=== PATIENT | female | born 2000 | race African-American/Black ===

== ENCOUNTER 2022-11-05 16:58 | Emergency (ER) | payer OTHER, SELFPAY ==
[2022-11-05 17:12] VITALS: BP 105/54; PULSE 80; RESP 20; TEMP 36.9; O2SAT 100
[2022-11-05 17:14] VITALS: BP 105/54; PULSE 80; RESP 20; TEMP 36.9; O2SAT 100
== END 2022-11-05 18:08 | disposition left against medical advice (07) ==
LOC: EXPCOLL 17:04
PROVIDERS: Emergency Provider Nurse Practitioner
DX: M54.9 Dorsalgia, unspecified (principal)
CPT/HCPCS: 99199

== ENCOUNTER 2022-11-07 14:25 | Emergency (ER) | payer OTHER, SELFPAY ==
--- NOTE | 2022-11-07 14:30 | ED.FEMALEGU ---
HPI - Female Genitourinary General Chief complaint: Urogenital-Female Stated complaint: urinary/vaginal issue Time Seen by Provider: 11/07/22 14:30 Source: patient Mode of arrival: ambulatory Limitations: no limitations History of Present Illness HPI Narrative: Patient is a 22-year-old female that presents with 3 days of urinary frequency and urgency. Patient states she just got off her menstrual cycle on the 10th. Patient states she is having intercourse with significant other this morning and started having pain with sex and a burning sensation. Patient states the burning sensation continued after intercourse and is still having an uncomfortable sensation inside of vagina. Patient would like testing for STDs but does not have high suspicion. Patient states she has been diagnosed with BV in the past. Unsure of vaginal discharge but did state there was a fishy odor. Denies any new back pain other than her chronic scoliosis pain. Denies any fever, chills, nausea, vomiting, diarrhea. MD elicited complaint: dysuria Related Data Allergies Allergy/AdvReac Type Severity Reaction Status Date / Time No Known Allergies Allergy Mild Verified 11/05/22 17:13 Review of Systems Review of Systems: All systems reviewed & are unremarkable except as noted in HPI and below Constitutional: Constitutional: Denies chills, Denies fever(s), Denies headache(s), Denies malaise and Denies weakness Eyes: Eyes: Denies change in vision, Denies eye discharge and Denies irritation ENT: Denies otalgia, Denies headache(s), Denies nasal congestion, Denies nasal discharge, Denies sinus pain and Denies sore throat Cardiovascular: Cardiovascular: Denies chest pain, Denies edema, Denies palpitations and Denies dyspnea Respiratory: Respiratory: Denies cough and Denies dyspnea Gastrointestinal: Gastrointestinal: Denies abdominal pain, Denies diarrhea, Denies nausea and Denies vomiting Genitourinary: Genitourinary: Denies hematuria, Reports nocturia, Reports dyspareunia, Reports dysuria, Denies flank pain, Reports urinary urgency, Reports vaginal odor and Reports vaginal pruritus Musculoskeletal: Musculoskeletal: Denies back pain and Denies numbness Integumentary/Breasts: Skin/Breast: Denies pruritus and Denies rash Neurologic: Denies headache(s), Denies numbness and Denies weakness Psychiatric: Psychiatric: Reports no additional psychiatric complaints Endocrine: Endocrine: Denies palpitations PMFSH Comments At time of signature, agree with nursing past medical, surgical, social and family history. There is no relevant family history pertinent to the presenting complaint. Exam Const: General: cooperative, healthy appearing, comfortable, no acute distress and well nourished Nutritional Appearance: well nourished Orientation/consciousness: patient oriented x3 HENMT: Head: normocephalic and atraumatic Ears: external ears normal Face/Nose/Sinus: Normal external nose present, Normal nares present and normal facial exam Face and sinus: normal facial exam Eyes: General: appearance normal, both eyes and all related structures Pupils: Equal, round and reactive pupils present EOM: EOMs intact bilaterally Neck: Neck: normal visual inspection, full ROM and supple Chest: Chest palpation & inspection: normal inspection of the chest Resp: Effort & Inspection: normal respiratory effort and able to speak in complete sentences Cardio: Rate: regular rate Rhythm: regular rhythm GI: Inspection: normal to inspection GI Palp: No abdominal tenderness and Yes Soft to palpation : General: Yes no CVA tenderness Back/Spine/Pelvis: Back: no CVA tenderness Skin: General skin exam: normal color and no rashes or lesions noted Neuro: General: patient oriented x3 and moves all extremities Cranial nerves: Yes Equal, round and reactive pupils present Extrem: General: normal to inspection and full ROM Psych: Appearance: grossly normal and well kempt Course
[2022-11-07 14:38] VITALS: BP 124/72; PULSE 87; RESP 14; TEMP 36.8; O2SAT 100
[2022-11-07 20:17] LABS: Trichomonas Vag PCR NOT DETECTED (NOT DETECTE)
[2022-11-07 20:39] LABS: Chlamydia trachomatis NOT DETECTED (NOT DETECTE); Neisseria gonorrhoeae PCR NOT DETECTED (NOT DETECTE)
== END 2022-11-07 15:19 | disposition home or self-care (01) ==
PROVIDERS: Emergency Provider Nurse Practitioner Family
DX: N76.0 Acute vaginitis (principal); N30.00 Acute cystitis without hematuria; M41.9 Scoliosis, unspecified
CPT/HCPCS: 81003; 87086; 87088; 87491; 87591; 87661; 99214; G0463

== ENCOUNTER 2022-12-06 15:44 | Emergency (ER) | payer OTHER, SELFPAY ==
[2022-12-06 15:54] VITALS: BP 115/58; PULSE 100; RESP 16; TEMP 36.9; O2SAT 100
--- NOTE | 2022-12-06 16:01 | ED.FEMALEGU ---
HPI - Female Genitourinary General Chief complaint: Urogenital-Female Stated complaint: Vaginal Problems Time Seen by Provider: 12/06/22 16:01 Source: patient, RN notes reviewed and old records reviewed Mode of arrival: ambulatory Limitations: no limitations History of Present Illness HPI Narrative: Patient presents for vaginal itching and discharge for a couple of days. Recently treated for BV. Was tested 1 month ago for STDs. Recently tested positive for . Last menstrual period was 30 October. 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 Related Data Home Medications Medication Instructions Recorded Confirmed No Home Medications 12/06/22 12/06/22 Allergies Allergy/AdvReac Type Severity Reaction Status Date / Time No Known Allergies Allergy Mild Verified 12/06/22 15:46 Review of Systems Review of Systems: All systems reviewed & are unremarkable except as noted in HPI and below Constitutional: Constitutional: Reports no additional constitutional complaints Eyes: Eyes: Reports no additional eye complaints ENT: Reports system reviewed and no additional complaints, except as documented Cardiovascular: Cardiovascular: Reports no additional cardiovascular complaints, Denies chest pain and Denies dyspnea Respiratory: Respiratory: Reports no additional respiratory complaints, Denies chest congestion, Denies cough and Denies dyspnea Gastrointestinal: Gastrointestinal: Reports no additional gastrointestinal complaints, Denies abdominal pain, Denies nausea and Denies vomiting Genitourinary: Genitourinary: Reports as per HPI, Reports vaginal discharge and Reports vaginal pruritus Musculoskeletal: Musculoskeletal: Reports no additional musculoskeletal complaints Integumentary/Breasts: Skin/Breast: Reports system reviewed and no additional complaints, except as docu Neurologic: Reports system reviewed and no additional complaints, except as documented Psychiatric: Psychiatric: Reports no additional psychiatric complaints Allergic/Immunologic: Allergic/Immunologic: Reports no additional allergic/immunologic complaints PMFSH Comments At the time of my signature, I reviewed and agree with the nursing past medical, surgical, social, and family history. There is no relevant family history pertinent to the patient complaint. Exam Const: General: cooperative, healthy appearing, comfortable, no acute distress, well developed, alert and well nourished Nutritional Appearance: well nourished Orientation/consciousness: patient oriented x3 Limitations: no limitations HENMT: Head: normal to inspection Ears: hearing grossly normal bilaterally and external ears normal Face/Nose/Sinus: Normal external nose present, Normal nares present, Normal nasal mucous membranes and turbinates present, normal facial exam and face symmetric Face and sinus: normal facial exam and face symmetric Mouth: Yes lip normal and Yes moist mucous membranes Eyes: General: appearance normal, both eyes and all related structures Alignment and Position: alignment normal Periorbital: periorbital findings normal Pupils: Equal, round and reactive pupils present EOM: EOMs intact bilaterally Neck: Neck: normal visual inspection, full ROM, no lymphadenopathy and no meningeal signs Chest: Chest palpation & inspection: normal inspection of the chest Resp: Effort & Inspection: normal respiratory effort and able to speak in complete sentences Cardio: Rate: regular rate Rhythm: regular rhythm GI: GI Palp: No abdominal tenderness : Other: Patient declined exam Back/Spine/Pelvis: Cervical Spine: cervical ROM normal Skin: General skin exam: normal color and no rashes or lesions noted Lesions: no lesions Rashes: no rashes Wounds: no wounds Neuro: General: patient oriented x3, gait normal, tone normal, moves all extremities and no meningeal signs Cranial nerves: Yes Equal, round and reactive pupils present Cognition (Neuro): normal cognition
== END 2022-12-06 16:20 | disposition home or self-care (01) ==
PROVIDERS: Emergency Provider Nurse Practitioner
DX: O98.819 Other maternal infectious and parasitic diseases complicating pregnancy, unspecified trimester (principal); B37.49 Other urogenital candidiasis; Z3A.00 Weeks of gestation of pregnancy not specified
CPT/HCPCS: 81003; 81025; 87086; 99212; G0463

== ENCOUNTER 2023-02-04 10:55 | Emergency (ER) | payer OTHER, SELFPAY ==
[2023-02-04 11:01] VITALS: BP 125/79; PULSE 99; RESP 16; TEMP 36.8; O2SAT 100
--- NOTE | 2023-02-04 11:15 | ED.FEMALEGU ---
HPI - Female Genitourinary General Chief complaint: Urogenital-Female Stated complaint: Vaginal Bleeding Time Seen by Provider: 02/04/23 11:17 Source: patient, RN notes reviewed and old records reviewed Mode of arrival: ambulatory Limitations: no limitations History of Present Illness HPI Narrative: 22-year-old female presents to the [facility] with complaints of vaginal bleeding. Patient states that the blood is brown, not red. Has been passing large brown clots. Was seen December 06 and had a positive test. Reports having an on 24 December. States that she was seen in a clinic. States the bleeding stopped for a couple of days return 3 days ago. This morning she has been bleeding through a pad an hour. Currently with no pain. Denies any nausea or vomiting. Reports that she has an appointment with Dr. Wild on Friday Treatment prior to arrival: none Related Data Total number of abortions (spontaneous and elective): 2 Home Medications Medication Instructions Recorded Confirmed No Home Medications 12/06/22 02/04/23 Allergies Allergy/AdvReac Type Severity Reaction Status Date / Time No Known Allergies Allergy Mild Verified 02/04/23 11:42 Review of Systems Review of Systems: All systems reviewed & are unremarkable except as noted in HPI and below Constitutional: Constitutional: Reports no additional constitutional complaints Eyes: Eyes: Reports no additional eye complaints ENT: Reports system reviewed and no additional complaints, except as documented Cardiovascular: Cardiovascular: Reports no additional cardiovascular complaints, Denies chest pain and Denies dyspnea Respiratory: Respiratory: Reports no additional respiratory complaints, Denies chest congestion, Denies cough and Denies dyspnea Gastrointestinal: Gastrointestinal: Reports as per HPI, Reports abdominal pain (Suprapubic), Denies nausea and Denies vomiting Genitourinary: Genitourinary: Reports as per HPI and Reports menorrhagia Musculoskeletal: Musculoskeletal: Reports no additional musculoskeletal complaints Integumentary/Breasts: Skin/Breast: Reports system reviewed and no additional complaints, except as docu Neurologic: Reports system reviewed and no additional complaints, except as documented Psychiatric: Psychiatric: Reports no additional psychiatric complaints Allergic/Immunologic: Allergic/Immunologic: Reports no additional allergic/immunologic complaints PMFSH Comments At the time of my signature, I reviewed and agree with the nursing past medical, surgical, social, and family history. There is no relevant family history pertinent to the patient complaint. Exam Const: General: cooperative, healthy appearing, comfortable, no acute distress, well developed, alert and well nourished Nutritional Appearance: well nourished Orientation/consciousness: patient oriented x3 Limitations: no limitations HENMT: Head: normal to inspection Ears: hearing grossly normal bilaterally and external ears normal Face/Nose/Sinus: Normal external nose present, Normal nares present, Normal nasal mucous membranes and turbinates present, normal facial exam and face symmetric Face and sinus: normal facial exam and face symmetric Eyes: General: appearance normal, both eyes and all related structures Alignment and Position: alignment normal Periorbital: periorbital findings normal Pupils: Equal, round and reactive pupils present EOM: EOMs intact bilaterally Neck: Neck: normal visual inspection, full ROM, no lymphadenopathy and no meningeal signs Chest: Chest palpation & inspection: normal inspection of the chest Resp: Effort & Inspection: normal respiratory effort and able to speak in complete sentences Auscultation: clear to auscultation bilaterally, no crackles, no rales, no rhonchi and no wheezes Cardio: Rate: regular rate Rhythm: regular rhythm GI: GI Palp: Yes abdominal tenderness (Suprapubic), Yes Soft to palpation, No Firmn
== END 2023-02-04 11:46 | disposition short-term general hospital (02) ==
PROVIDERS: Emergency Provider Nurse Practitioner
DX: N93.9 Abnormal uterine and vaginal bleeding, unspecified (principal); Z32.02 Encounter for pregnancy test, result negative; M41.9 Scoliosis, unspecified
CPT/HCPCS: 81003; 81025; 99212; G0463

== ENCOUNTER 2023-06-19 11:58 | Emergency (ER) | payer OTHER, SELFPAY ==
[2023-06-19 12:11] VITALS: BP 114/75; PULSE 79; RESP 14; TEMP 36.7; O2SAT 100
--- NOTE | 2023-06-19 12:20 | ED.FEMALEGU ---
HPI - Female Genitourinary General Chief complaint: Urogenital-Female Stated complaint: urinary issue Time Seen by Provider: 06/19/23 13:02 Source: patient and RN notes reviewed Mode of arrival: ambulatory Limitations: no limitations History of Present Illness HPI Narrative: 22-year-old female presents concern for dysuria, frequency, urgency, pain during sex. She denies fever, body aches, chills, sweats, abdominal pain, nausea, vomiting. She reports history of STI. She reports she has been having unprotected sex with a partner, however she does not know of any specific exposure. She denies abnormal vaginal discharge. She reports a small bump on her labia that she occasionally squeezes and gets pus out of, reports it has gotten very small. It has been there about a week. MD elicited complaint: dysuria Related Data Home Medications Medication Instructions Recorded Confirmed medroxyprogesterone 150 mg/mL 150 mg IM [id number] 06/19/23 06/19/23 intramuscular suspension Allergies Allergy/AdvReac Type Severity Reaction Status Date / Time No Known Allergies Allergy Mild Verified 06/19/23 12:09 Review of Systems Review of Systems: CONSTITUTIONAL: Denies malaise, chills, sweats, or fever. CARDIOVASCULAR: Denies chest pain, palpitations, or edema. RESPIRATORY: Denies cough or dyspnea. GASTROINTESTINAL: Denies abdominal pain, nausea, vomiting, diarrhea GENITOURINARY: Reports dysuria, frequency, urgency. Denies flank pain or hematuria. SKIN: Denies rash or itching. Reports a small bump on her labia MUSCULOSKELETAL: Denies back pain or myalgia. All systems reviewed & are unremarkable except as noted in HPI and below PMFSH Comments At time of signature, agree with nursing past medical, surgical, social and family history. There is no relevant family history pertinent to the presenting complaint Exam Narrative: GENERAL: Well-appearing, well-nourished, and in no acute distress. HEAD: Normocephalic. EYES: PERRLA, conjunctivae clear. NECK: Supple. No lymphadenopathy CHEST: Clear to auscultation. No respiratory distress. HEART: Regular rate and rhythm. ABDOMEN: Soft, nontender upon palpation, nondistended, normal active bowel sounds, no palpable or pulsatile masses, no guarding. No CVA tenderness SKIN: Warm, dry, no rash. NEURO: Alert and oriented x3. PSYCH: Normal mood and affect Patient refused pelvic exam Course Course Emergency Course: I discussed with patient that due to her symptoms, concern for STI I will not treat her until I have more information with her STI test results and urine culture. Patient refused pelvic exam so I could examine the bump on her labia, likely sounds like it may be an ingrown hair, patient was given anticipatory a device regarding caring for that. She was also advised to follow up with a clinic for further STI testing. Patient is aware of diagnosis, understands and agrees to treatment plan. Anticipatory guidance given. Patient agrees to follow-up as directed and is aware of reasons to seek care at the emergency department. Portions of this record may have been created with voice recognition software Level of Care: Express Care Visit Vital Signs Vital signs: Vital Signs Temperature 98.0 F 06/19/23 12:11 Pulse Rate 79 06/19/23 12:11 Respiratory Rate 14 06/19/23 12:11 Blood Pressure 114/75 06/19/23 12:11 Pulse Oximetry 100 06/19/23 12:11 Temperature 98.0 F 06/19/23 12:11 Pulse Rate 79 06/19/23 12:11 Respiratory Rate 14 06/19/23 12:11 Blood Pressure 114/75 06/19/23 12:11 Pulse Oximetry 100 06/19/23 12:11 Reviewed. MDM - Female Genitourinary MDM Narrative Medical decision making narrative: Exam findings and UA show no acute concerns or changes; patient is non-toxic appearing and is in no distress. Patient is appropriate for outpatient treatment and follow-up. Differential Diagnosis Differential diagnosis: Likely urinary tract inf
[2023-06-19 21:44] LABS: Trichomonas Vag PCR NOT DETECTED (NOT DETECTE)
[2023-06-19 22:08] LABS: Chlamydia trachomatis NOT DETECTED (NOT DETECTE); Neisseria gonorrhoeae PCR NOT DETECTED (NOT DETECTE)
== END 2023-06-19 13:21 | disposition home or self-care (01) ==
PROVIDERS: Emergency Provider Nurse Practitioner; PCP Nurse Practitioner Family
DX: R30.0 Dysuria (principal)
CPT/HCPCS: 81003; 87086; 87491; 87591; 87661; 99214; G0463

== ENCOUNTER 2024-02-11 14:42 | Emergency (ER) | payer OTHER, SELFPAY ==
--- NOTE | 2024-02-11 15:04 | ED_ITS ---
HPI - Female Genitourinary General Chief complaint: Urogenital-Female Stated complaint: urinary issue,abdominal pain Time Seen by Provider: 02/11/24 15:04 Source: patient Mode of arrival: ambulatory Limitations: no limitations History of Present Illness HPI Narrative: 23 yo F presents with c/o lower ABD cramping, urinary frequency, urgency and also vaginal discharge. Requesting STI testing. Afebrile. All systems reviewed and negative except as noted above. Related Data Home Medications ?Medication ?Instructions ?Recorded ?Confirmed ?Last Taken ?Type medroxyprogesterone 150 mg/mL 150 mg IM [id number] 06/19/23 06/19/23 Unknown History intramuscular suspension Allergies Allergy/AdvReac Type Severity Reaction Status Date / Time No Known Allergies Allergy Mild Verified 02/11/24 14:55 Review of Systems Review of Systems: CONSTITUTIONAL: Denies fever, chills, or sweats. EYES: Denies visual changes, redness, or discharge. ENT: Denies rhinorrhea, congestion, sore throat, or otalgia. CARDIOVASCULAR: Denies chest pain, palpitations, or edema. RESPIRATORY: Denies cough or dyspnea. GASTROINTESTINAL: Denies abdominal pain, nausea, vomiting, or diarrhea. GENITOURINARY: Reports dysuria frequency, vaginal discharge. Denies hematuria. SKIN: Denies rash or itching. MUSCULOSKELETAL: Denies back pain, joint pain, or myalgia. NEUROLOGIC: Denies headache, numbness, or weakness. PSYCHIATRIC: Denies anxiety or depression. All other systems reviewed are negative, except as documented in HPI. PMFSH Comments At time of signature, agree with nursing past medical, surgical, social and family history. There is no relevant family history pertinent to the presenting complaint. Exam Narrative: GENERAL: This is a well-nourished, well-developed patient, in no apparent distress. HEAD: normocephalic, atraumatic. EYES: PERRL. Sclera clear/white. Vision is grossly intact. EARS: External ears normal NOSE: External nose normal NECK: Neck supple, non-tender without lymphadenopathy, masses or thyromegaly. CARDIOVASCULAR: Regular rate and rhythm without murmurs, gallops, or rubs. RESPIRATORY: Clear to auscultation. Breath sounds equal bilaterally. No wheezes, rales, or rhonchi. SKIN: warm, Dry, intact with no suspicious lesions or rash, good texture and turgor. NEURO: awake, alert, and oriented to person, place and time. There were no obvious focal neurologic abnormalities. EXTREMITIES: No joint tenderness, effusion, or edema noted. genitourinary: pelvic exam deferred Course Course Level of Care: Express Care Visit Vital Signs Vital signs: Vital Signs Temperature 36.1 C L 02/11/24 15:08 Pulse Rate 89 02/11/24 15:08 Respiratory Rate 16 02/11/24 15:08 Blood Pressure 127/86 02/11/24 15:08 Pulse Oximetry 99 02/11/24 15:08 Oxygen Delivery Room Air 02/11/24 15:08 Temperature 36.1 C L 02/11/24 15:08 Pulse Rate 89 02/11/24 15:08 Respiratory Rate 16 02/11/24 15:08 Blood Pressure 127/86 02/11/24 15:08 Pulse Oximetry 99 02/11/24 15:08 Oxygen Delivery Room Air 02/11/24 15:08 reviewed MDM - Female Genitourinary MDM Narrative Medical decision making narrative: Patient is aware of diagnosis, understands and agrees to treatment plan. Anticipatory guidance given. Patient agrees to follow-up as directed and is aware of reasons to seek care at the emergency department. Portions of this record may have been created with voice recognition software urinalysis normal. Urine culture ordered. Urine test for gonorrhea, chlamydia, Trichomonas Pending. Bacterial vaginosis and yeast infection treatment pending. Will treat for gonorrhea and chlamydia today due to patient's symptoms. Lab Data Labs: Lab Results 02/11/24 02/11/24 Range/Units 15:07 15:08 POC Urine Color Yellow POC Urine Clarity Clear POC Urine pH 7.0 POC Ur Specif [place] 1.025 POC Urine Protein Trace (Negative) POC Ur Glucose (UA) Negative (Negative) POC Urine Ketones Negative (Negative) POC Urine Blood Negative (Negative) POC Urine Nitrite Negative (Negative) POC Urine Bilirubin Negative (Negative) POC Urine Urobilinogen 1.0 POC U Leukocyte Esteras Negative (Negative) Bact Vaginosis Panel Pending Discharge Plan Discharge Clinical Impression: Dysuria, Vaginal discharge Patient Disposition: Home, Self-Care Condition: Stable Instructions: Antibiotic Form, Sexually Transmitted Diseases (ED), Safe Sex Practices (ED) Additional Instructions: You were tested for gonorrhea, chlamydia, Trichomonas, bacterial vaginosis and yeast infection today. Results will take 48-72 hours. Avoid all sexual activity until you know your test results. If you have a positive test results avoid sexual today for 3 weeks and your partner will need to be treated. Follow-up your floor installation mechanic at next available appointment. Patient Language: Luxembourger Prescriptions: New doxycycline hyclate 100 mg capsule 100 mg PO BID 7 Days Qty: 14 0RF No Action medroxyprogesterone [Depo-Provera Contraceptive] 150 mg/mL Suspension 150 mg IM [id number] Follow-up/Referrals: PHYSICIAN,BAG MACHINE OPERATOR [Primary Care Provider] - Time of Disposition: 15:34
[2024-02-11 15:08] VITALS: BP 127/86; PULSE 89; RESP 16; TEMP 36.1; O2SAT 99
[2024-02-11 15:10] LABS: EDUAAPPEAR Clear; EDUABILI Negative (Negative); EDUABLOOD Negative (Negative); EDUACOLOR1 Yellow; EDUAGLUCOSE Negative (Negative); EDUAKETONE Negative (Negative); EDUALEUKO Negative (Negative); EDUANITRATE Negative (Negative); EDUAPROTEIN Trace (Negative); EDUASPGRAVITY 1.025
[2024-02-11] MEDS: cefTRIAXone 500 MG, LIDOCAINE 1% LOCAL INJ 1 ML IM (15:18)
[2024-02-11 19:58] LABS: Trichomonas Vag PCR NOT DETECTED (NOT DETECTE)
[2024-02-11 20:21] LABS: Chlamydia trachomatis NOT DETECTED (NOT DETECTE); Neisseria gonorrhoeae PCR NOT DETECTED (NOT DETECTE)
[2024-02-12 18:03] LABS: Bacterial Vaginosis POSITIVE (NEGATIVE)
== END 2024-02-11 15:42 | disposition home or self-care (01) ==
PROVIDERS: Emergency Provider Nurse Practitioner Family
DX: N76.0 Acute vaginitis (principal); N39.0 Urinary tract infection, site not specified; B96.4 Proteus (mirabilis) (morganii) as the cause of diseases classified elsewhere; Z11.3 Encounter for screening for infections with a predominantly sexual mode of transmission
CPT/HCPCS: 81003; 81513; 87070; 87077; 87086; 87186; 87491; 87591; 87661; 96372; 99213; G0463; J0696; J2003

== ENCOUNTER 2024-03-28 10:43 | Emergency (ER) | payer SELFPAY ==
--- OUTSIDE RECORDS SUMMARY | 2024-03-28 10:44 | XMS_ITS | Clinical Summary ---
Author Organization [place] [id number] Address [address] [place] [address] Care Team Providers Care Fisher Net Name Role Phone Unavailable Primary Care Provider Unavailabl e Allergies Active Allergy Reactions Criticality Noted Date Comments Iodinated Contrast Media Shortness of breath High Medications ondansetron ODT (ZOFRAN-ODT) 4 mg disintegrating tablet Take 1 tablet (4 mg total) by mouth every 8 (eight) hours as needed for nausea or vomiting 20 tablet 2 Active albuterol HFA (PROVENTIL HFA,VENTOLIN HFA,PROAIR HFA) 90 mcg/actuation inhaler Inhale 2 puffs every 4 (four) hours as needed for wheezing 1 each 2 Active dicyclomine (BENTYL) 20 mg tablet Take 1 tablet (20 mg total) by mouth every 6 (six) hours as needed (abdominal cramps) 20 tablet 2 Active LORazepam (ATIVAN) 0.5 mg tabletIndications:P anic attack Take 1 tablet (0.5 mg total) by mouth every 6 (six) hours as needed for anxiety 10 tablet 3 Active ondansetron (ZOFRAN) 4 mg tablet Take 1 tablet (4 mg total) by mouth every 6 (six) hours 12 tablet 3 Active predniSONE (DELTASONE) 20 mg tablet Take 4 tablets (80 mg) by mouth daily 4 PO x QD x 3 days, Then 3 PO q 3 D, then 2 PO QD x 3 D, Then 1 PO QD x 3 D then 1/2 PO QD x 3 D then stop. 33 tablet 3 Active estradioL (ESTRACE) 2 mg tablet Take 0.5 tablets (1 mg total) by mouth daily 15 tablet 3 Active hydrocortisone (ANUSOL-HC) 2.5 % rectal cream Insert into the rectum 2 (two) times a day 30 g 4 Active Surgical History Surgery Date Site/Laterality Comments NO PAST SURGERIES Medical History Medical History Date Comments No pertinent past medical history Social History Tobacco Use Types Packs/Day Years Used Date Smoking Tobacco: Never Alcohol Use Standard Drinks/Week Comments Yes 0 (1 standard drink = 0.6 oz pur e alcohol) social Personal Safety Answer Date Recorded Have you ever been in or are you currently in a harmful physical or emotional relationship or is someone making you feel afraid or unsafe? Denies 11/18/2023 Comments No Sex and Gender Information Value Date Recorded Sex Assigned at Not on file Legal Sex Female 8:41 PM [employer] Gender Identity Not on file Sexual Orientation Not on file Obstetrics History Para Term AB IAB SAB Ectopic Multiple Livin g Live Births 1 Date Outcome GA Total Labor Labor/2nd/3rd Weight Sex Type Anes PTL Lashay A1 A5 Name Clin Last Filed Vital Signs Vital Sign Reading Time Taken Comments Blood Pressure 123/65 11/18/2023 4:09 PM CDT Pulse 74 11/18/2023 4:09 PM CDT Temperature 37 ??C (98.6 ??F) 11/18/2023 1:24 PM CDT Respiratory Rate 18 11/18/2023 4:09 PM CDT Oxygen Saturation 100% 11/18/2023 4:09 PM CDT Inhaled Oxygen Concentration - - Weight 55 kg (121 lb 4.1 oz) 11/18/2023 1:24 PM CDT Height 162.6 cm (5' 4 ) 07/14/2022 6:53 AM CDT Body Mass Index 20.81 07/14/2022 6:53 AM CDT Plan of Treatment Health Maintenance Due Date Last Done Comments Cervical Cancer Screening 2002 Depression Screening 2002 Hepatitis C Screening 2002 HPV Vaccines (3 - 2-dose series) 03/24/2014 11/25/2013, 09/21/2013 Meningococcal B Vaccine (1 of 2 - Patient Seeks Protection) 2018 Regular Well Visit/Exam 18-64 2020 DTaP/Tdap/Td Vaccine (6 - Td or Tdap) 09/22/2023 09/21/2013, 09/17/2004, 08/04/2003, Additional history exists Influenza Vaccine (#1) 2023 11/25/2013, 2011 Pneumococcal vaccine <65 Aged Out 06/06/2003, 04/24 No longer eligible based on patient's age to complete this topic Varicella Vaccines Completed 09/21/2013, 09/17/2004 Meningococcal Vaccine Aged Out 11/25/2013 No felicity gita eligible based on patient's age to complete this topic Insurance [facility] [place] [place] [address] [facility] Member Subscriber Plan / Payer (Ef fective 2020-Present) Name:Callie Goff Relation to Subscriber:Self Name:Callie Goff Payer ID:[id number] (NAIC) Group ID:Not on file Type:MEDICAID RISK OTHER Address: ATTN: CLAIMS DEPT [address] [facility] [place] [id number] [facility]
--- OUTSIDE RECORDS SUMMARY | 2024-03-28 10:44 | XMS_ITS | Data Portability ---
Author Organization [facility] Address [address] [place] [address] [place] [address] Assessment Encounter Date Assessment Date Assessment LastModified by Organization Details LastModified Time 02/27/2024 02/27/2024 Annual gynecological exam performed. Patient will come back in a year unless there are new symptoms. [email or web address] Not available 02/27/2024 12:33:58 Plan of Treatment Reminders Order Date Submit Date Provider Last Modified By Organization Details Last Modified Time Details Appointments None recorded. Lab urinalysis, dipstick 2023 024 [email or web address] [email or web address] [place], [address], [address], [place], [address], 4 14:33:24 hbcab (hepatitis B core Ab) igm, serum 2023 024 [facility] (Lab), [address], [place], [address], 4 20:37:07 HBsAg (hepatitis B surface Ag), serum 2023 024 [facility] (Lab), [address], [place], [address], 4 20:37:05 hepatitis C virus Ab, serum 2023 024 [facility] (Lab), [address], [place], [address], 4 20:37:06 HIV 1+2 AB + HIV 1 p24 Ag, qualitative immunoassay , serum 2023 024 [facility] (Lab), [address], [place], [address], 4 20:37:05 RPR (rapid plasma reagin), serum 2023 024 [facility] (Lab), [address], [place], [address], 4 20:37:07 Referral None recorded. Procedures None recorded. Surgeries None recorded. Imaging None recorded. Medication Orders Diflucan 150 mg tablet 2023 024 [id number], [address] , [place], [place], [id number], 4 09:04:53 Xulane 150 mcg-35 mcg/24 hr transdermal patch 2023 025 [id number], [address], [place], [place], [id number], 5 12:36:03 Patient TargetsNo targets recorded. Patient InstructionsNo instructions recorded. Reason for Referral None Reported. Results Created Date Observation Date Name Description Value Unit Range Abnormal Flag Note LastModifiedBy Organization Detail LastModifiedTime 06/24/19 24 06/24/2023 CT/GC AND TRICH OMONA S VAGIN REGINO (RRNA ), SWAB chlamydia trachomatis, PCR Negati ve negati ve Not Available [facility] (Lab) [address], [place], [address], 06/26/2023 07:18:42 06/24/19 24 06/24/2023 CT/GC AND TRICH OMONA S VAGIN REGINO (RRNA ), SWAB neisseria gonorrhoeae, PCR Negati ve negati ve Not Available [facility] (Lab) [address], [place], [address], 06/26/2023 07:18:42 04/30/20 24 06/24/2023 CT/GC AND TRICH OMONA S VAGIN REGINO (RRNA ), SWAB trichomonas vaginalis ribosomal RNA (rrna) Negati ve negati ve Not Available [facility] (Lab) [address], [place], [address], 06/26/2023 07:18:42 06/24/19 24 06/24/2023 CULTU RE: URINE result report SEE RESULT S BELOW Test: Cultu re: Urine Speci men Sourc e: Urine Voide d Speci men Type: Urine Speci men Date: 2023 4:06 PM Resul t Date: 6:12 AM Resul t Statu s: Final resul t Abnor mal: No Resul ting Lab: [facility] [address] [facility] [address] Tel: CULTU RE ----- ----- ----- --- No growt h in 1 day (dete ction level of 10,00 0 colon ies / ml.) Not Available [facility] (Lab) [address] , [place], [address], 06/26/2023 07:18:43 06/24/19 24 06/24/2023 urina lysis , dipst ick Leukocytes +++ Not Available [facility] karyna [address], [place], [address], 06/24/2023 13:02:23 06/24/19 24 06/24/2023 urina lysis , dipst ick Nitrite + Not Available [place] [address], [place], [address], 06/24/2023 13:02:23 06/24/19 24 06/24/2023 urina lysis , dipst ick Protein trace Not Available [place] [address], [place], [address], 06/24/2023 13:02:23 06/24/19 24 06/24/2023 urina lysis , dipst ick pH 5 Not Available [place] [address], [place], [address], 06/24/2023 13:02:23 06/24/19 24 06/24/2023 urina lysis , dipst ick Blood +++ Not Available [place] [address], [place], [address], 06/24/2023 13:02:23 06/24/19 24 06/24/2023 urina lysis , dipst ick Specific [place] 1.025 Not Available [facility] [address], [place], [address], 06/24/2023 13:02:23 09/11/19 24 09/11/2023 VAGIN ITIS/ VAGIN OSIS, DNA PROBE octavia sp. detection, direct probe Negati ve negati ve Not Available [facility] (Lab) [address], [place], [address], 09/12/2023 20:36:28 09/11/19 24 09/11/2023 VAGIN ITIS/ VAGIN OSIS, DNA PROBE gardnerella vag. detection, direct probe Positi ve negati ve abnormal Not Available [facility] (Lab) [address], [place], [address], 09/12/2023 20:36:28 09/11/19 24 09/11/2023 VAGIN ITIS/ VAGIN OSIS, DNA PROBE trichomonas vag. detection, direct probe Negati ve negati ve Not Available [facility] (Lab) [address], [place], [address], 09/12/2023 20:36:28 09/11/19 24 09/11/2023 CT/GC AND TRICH OMONA S VAGIN REGINO (RRNA ), SWAB chlamydia trachomatis, PCR Negati ve negati ve Not Available [facility] (Lab) [address], [place], [address], 09/12/2023 20:36:29 09/11/19 24 09/11/2023 CT/GC AND TRICH OMONA S VAGIN REGINO (RRNA ), SWAB neisseria gonorrhoeae, PCR Negati ve negati ve Not Available [facility] (Lab) [address], [place], [address], 09/12/2023 20:36:29 09/11/19 24 09/11/2023 CT/GC AND TRICH OMONA S VAGIN REGINO (RRNA ), SWAB trichomonas vaginalis ribosomal RNA (rrna) Negati ve negati ve Not Available [facility] (Lab) [address], [place], [address], 09/12/2023 20:36:29 09/11/19 24 09/11/2023 HIV 1/2 ANTIG EN/AN TIBOD Y, REFLE X CONFI RMATI ON HIV antigen/anti body Nonrea ctive nonrea ctive HIV-1 antig en and HIV-1 /HIV- 2 antib odies were not detec renée. No labor atory evide nce of HIV infec tion. Not Available [facility] (Lab) [address], [place], [address], 09/12/2023 20:37:05 09/11/19 24 09/11/2023 HEPAT ITIS B SURFA CE ANTIG EN hepatitis B surface antigen Non-re active non-re active This assay was perfo rmed using [employer] ratio n reage nts and test kits. Value s obtai lindsey with other assay metho ds or kits canno t be used inter thomason eably . Not Available [facility] (Lab) [address], [place], [address], 09/12/2023 20:37:05 09/11/19 24 09/11/2023 HEPAT ITIS C ANTIB CATE SCREE N, REFLE X TO CONFI RMATI ON hepatitis C antibody Non-re active non-re active Antib odies to HCV Not Detec renée, does not exclu de the possi bilit y of expos ure to HCV. Not Available [facility] (Lab) [address], [place], [address], 09/12/2023 20:37:06 09/11/19 24 09/11/2023 HEPAT ITIS B CORE, IGM hepatitis B core IgM antibody Non-re active non-re active IgM anti- HBc not detec renée. Does not exclu de the possi bilit y of expos ure to or infec tion with HBV. Not Available [facility] (Lab) [address], [place], [address], 09/12/2023 20:37:07 09/11/19 24 09/11/2023 RPR SCREE N, REFLE X TITER /CONF IRMAT ION RPR screen Nonrea ctive nonrea ctive Not Available [facility] (Lab) [address] [place], [address], 09/12/2023 20:37:07 02/26/19 25 02/27/2024 IMAGE GUIDE D PAP, REFLE X HPV IF ASCUS ONLY image guided Pap, reflex HPV ASCUS only SEE RESULT S BELOW CASE REPOR T: Cytol ogy Gynec ologi antonino Repor t Case: [id number] Autho mercedes g Provi lukasz: Uyen Lynn, JORDEN Colle cted: 02/26 1333 Order ing Locat ion: [place] [facility] Recei bartolome: 03/01 1027 First Scree n: Noora ni, Moham ed, CT Speci men: Scree lora Pap - Image d, Cervi x STATE MENT OF ADEQU ACY: Satis facto ry for evalu ation Trans forma tion zone compo nent prese nt ----- ----- ----- ----- ----- ----- ----- ----- ----- ----- ----- ----- ----- ----- ----- ----- ----- ---- FINAL DIAGN OSIS: Negat lyssa for Intra epith elial Lesio n or Griffin garrett (NIL) . Elect sakshi rodriguez d by Dharmesh stephens, CT on 2024 at 2248 STATUS CONTROLLER ----- ----- ----- ----- ----- ----- ----- ----- ----- ----- ----- ----- ----- ----- ----- ----- ----- ---- COMME NT: This speci men was revie wed by a Cytot echno logis t and/o r Patho logis t (as indic ated in this repor t) after evalu ation using the Thinp rep Imagi ng Syste m. CLINI ANTONINO INFOR MATIO N: Menst rual Statu s: LMP (if appli cable ): Clini antonino Histo ry/Pr eviou s Pap: Type of Neopl ledy (if appli cable ): Signi fican t Clini antonino Findi ngs: Other Histo ry: Hormo krista (if appli cable ): PAP EDUCA OSVALDO L NOTE: The Pap Test is a scree lora test with an inher ent false negat lyssa rate. Liqui d-bas ed sampl ing may decre ase, but will not elimi becka, false negat lyssa resul ts. A negat lyssa resul t does not precl ude the prese nce and/o r devel opmen t of disea se, since the prese nce of abnor mal cells in the sampl e depen ds on the locat ion of the lesio n and sampl ing techn ique. Ankit nued regul ar scree lora is the best metho d of cance r preve ntion . If repor renée cytol ogic findi ng do not corre late with physi antonino and/o r histo rical findi ngs, furth er inves tigat ion is recom rafaela d, as clini shanique louis nted. Not Available [facility] (Lab) [address], [place], [address], 03/06/2024 23:51:16 02/26/19 25 02/27/2024 CT/GC (NOLAN) , THINP REP VIAL chlamydia trachomatis, PCR Negati ve negati ve Not Available [facility] (Lab) [address], [place], [address], 03/06/2024 23:51:17 02/26/19 25 02/27/2024 CT/GC (NOLAN) , THINP REP VIAL neisseria gonorrhoeae, PCR Negati ve negati ve Not Available [facility] (Lab) [address], [place], [address], 03/06/2024 23:51:17 02/26/19 25 02/27/2024 TRICH OMONA S VAGIN REGINO (RRNA ) trichomonas vaginalis ribosomal RNA (rrna) Negati ve negati ve Not Available [facility] (Lab) [address], [place], [address], 03/06/2024 23:51:18 Result Notes None recorded. Procedures Surgical History Date Name Laterality Status Provider Name and Address Organization Details Recorded Time 3 termination of completed [facility] 06/24/2023 12:45:41 2 termination of completed [facility] 06/24/2023 12:45:37 Imaging Results None recorded. Procedure Notes None recorded. Medical Equipment None Reported. Allergies No known drug allergies Medications Name Sig Start Date Stop Date Status Note LastModified by Organization Details LastModified Time doxycycline hyclate 100 mg capsule TAKE 1 CAPSULE BY MOUTH TWICE DAILY FOR 7 DAYS 02/26 completed Not Available Not Available Not Available fluconazole 150 mg tablet Take 1 tablet every day by oral route with meal(s) for 1 day. 09/14 completed Not Available Not Available Not Available metronidazo le 0.75 % (37.5 mg/5 gram) vaginal gel INSERT 1 APPLICATO RFUL VAGINALLY AT BEDTIME FOR 5 DAYS 02/26 completed Not Available Not Available Not Available prednisone 20 mg tablet 06/23 completed Not Available Not Available Not Available metronidazo le 500 mg tablet TAKE 1 TABLET BY MOUTH EVERY 12 HOURS FOR 7 DAYS 02/26 completed Not Available Not Available Not Available sulfamethox azole 800 mg-trimetho prim 160 mg tablet TAKE 1 TABLET BY MOUTH EVERY 12 HOURS FOR 3 DAYS 02/26 completed Not Available Not Available Not Available hydrocortis one 2.5 % topical cream with perineal applicator INSERT RECTALLY TO THE AFFECTED AREA TWICE DAILY 02/26 completed Not Available Not Available Not Available Depo-Crushed Stone Grader a 150 mg/mL intramuscul ar suspension Inject 1 mL every 3 months by intramusc ular route. 02/26 completed 06/10 Not Available Not Available Not Available cephalexin 500 mg capsule 06/23 completed Not Available Not Available Not Available estradiol 2 mg tablet 06/23 completed Not Available Not Available Not Available doxycycline hyclate 100 mg tablet TAKE 1 TABLET BY MOUTH TWICE DAILY WITH MEALS 09/10 completed Not Available Not Available Not Available amoxicillin 875 mg-potassiu m clavulanate 125 mg tablet TAKE 1 TABLET BY MOUTH EVERY 12 HOURS FOR 10 DAYS 06/23 completed Not Available Not Available Not Available Bebe 0.25 mg-35 mcg tablet TAKE 1 TABLET BY MOUTH EVERY DAY 06/23 completed Not Available Not Available Not Available Zafemy 150 mcg-35 mcg/24 hr transdermal patch 02/26 completed Not Available Not Available Not Available Vitals Date Recorded Body height Body mass index (BMI) Body mass index (BMI) Percentile per age and sex Body weight Systolic blood pressure Diastolic blood pressure Provider Name and Address Organization Details Last Updated DateTime 4 162.56 cm 21.5 kg/m2 47 % 32359.0 5 g 114 mm[Hg] 73 mm[Hg] Silvia Mcdonough [facility] 4 12:40:09 Date Recorded Body height Body mass index (BMI) Body mass index (BMI) Percentile per age and sex Body weight Systolic blood pressure Diastolic blood pressure Provider Name and Address Organization Details Last Updated DateTime 4 162.56 cm 21.8 kg/m2 50 % 12017.2 3 g 116 mm[Hg] 70 mm[Hg] Laura Shepard [facility] 4 17:03:17 Date Recorded Body height Body mass index (BMI) Body weight Systolic blood pressure Diastolic blood pressure Provider Name and Address Organization Details Last Updated DateTime 02/27/2024 162.56 cm 19.5 kg/m2 36677.37 g 119 mm[Hg] 75 mm[Hg] Ira Celaya [facility] 5 12:34:59 Social History Question Answer Notes LastModified by Organizat ion Details LastModified Time Tobacco Smoking Status Never Smoker Silvia hernández, [facility] 06/24/2023 12:44:42 Do You Have An Advance Directive? No [email or web address] Information n ot available 02/27/2024 What Is Your Level Of Alcohol Consumption? Occasional [email or web address] Information not available 02/27/2024 How Many Years Have You Consumed Alcohol? 5 Information not available 06/24/2023 Are You Blind Or Do You Have Difficulty Seeing? No Information n ot available 06/24/2023 What Is Your Level Of Caffeine Consumption? None Information not available 06/24/2023 How Much Tobacco Do You Chew? None [email or web address] Information not available 02/27/2024 In The 14 Days Before Symptom Onset, Have You Had Close Contact With A Laboratory-confirm ed COVID-19 While That Case Was Ill? No Information n ot available 06/24/2023 In The 14 Days Before Symptom Onset, Have You Had Close Contact With A Person Who Is Under Investigation For COVID-19 While That Person Was Ill? No Information not available 06/24/2023 Have You Been To An Area Known To Be High Risk For COVID-19? No Information not available 06/24/2023 Are You Deaf Or Do You Have Serious Difficulty Hearing? No Information not available 06/24/2023 What Type Of Diet Are You Following? REGULAR Information n ot available 06/24/2023 Which Illicit Or Recreational Drugs Have You Used? Marijuana Information not available 06/24/2023 What Is The Highest Grade Or Level Of School You Have Completed Or The Highest Degree You Have Received? 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 No Information not available 06/24/2023 Do You Use Protection During Sex? No Information not available 06/24/2023 Do You Use Your Seat Belt Or Car Seat Routinely? No Information not available 06/24/2023 Do You Have Smoke And Carbon Monoxide Detectors In Your Home? Yes Information not available 06/24/2023 How Much Tobacco Do You Smoke? No Information not available 06/24/2023 Do You Feel Stressed (tense, Restless, Nervous, Or Anxious, Or Unable To Sleep At Night)? [id number] Information not available 06/24/2023 Do You Use Any Illicit Or Recreational Drugs? Yes Information not available 06/24/2023 Do You Use Sunscreen Routinely? No Information not available 06/24/2023 Have You Used IV Drugs? No Information not available 06/24/2023 Sex: Unknown Functional Status Question Answer Note LastModified by Organizat ion Details LastModified Time Do you have difficulty walking or climbing stairs? No Information not available 09/11/2023 Are you able to walk? YESWOREST Information not available 06/24/2023 Are you able to care for yourself? Yes Information not available 09/11/2023 Do you have difficulty dressing or bathing? No Information not available 09/11/2023 What is your exercise level? None Information not available 06/24/2023 Mental Status None recorded. Family History Relationship Description Onset Age of this Age Resolved Age Notes LastModified by Organization Details LastModified Time Unspecified Relation Family history unknown [email or web address] Not available 2024 12:10:46 Maternal Grandmother Malignant tumor of breast Not available 2023 12:44:25 Medical History Condition Response No Past Medical History Y Gynecological History Statement/Question Response Date of LMP 02/03/2024 On BCP's at Conception? N N Was last menstrual period normal Y STIs/STDs Y HPV Vaccine N Duration of Flow (days) 5 Current Control Method None Are cycles usually normal Y Frequency of Cycle (Q days) 28 Sexually Active? Y None Menses Monthly Y Age of first menstrual cycle 13 Date of Last Pap Smear Sexual Problems? N Desired Control Method None LMP Approximate N Obstetrics History GPAL:G 2 P 0 0 2 0 Type Value Induced 2 Living 0 Total 2 Past Encounters Encounter ID Performer Location Encounter Start Date Encounter Closed Date Diagnosis/Indication Diagnosis SNOMED-CT Code Diagnosis ICD10 Code Diagnosis Note [id number] [facility] [address] [address] 06/24/2023 12:32:02 06/24/2023 13:48:13 Urinary symptoms 608156502 R39.9 Today I agreed to send abx for treatment and send testing (std, urine, vag screening) .Agreeable to plan of care. Counseled on medication R/B's, Most common side effects, & use. All questions were answered to patient satisfacti on. Health Hx was reviewed and updated as reported in chart.Adelso lewisSTD sent+nitra juan luis on urine dip Time spent in visit is a total of 30 mins with at least 50% of visit consisting of counseling and review of plan of care. Vaginitis 84526596 N76.0 Dysuria 37932871 R30.0 Urine cx sent [id number] CLAUDETTE Berry [place] [address] [address] 09/11/2023 16:57:40 09/11/2023 17:34:50 Contraception care management [id number] Z30.9 Discussed all control options in great detail. Pt would like to start xulane patch. She is aware of the risks and benefits. She does not have any medical condition that is contraindi cated with the use of estrogen containing control. Pt will place the patch then replace weekly x 2 (total of 3 patches over 3 weeks) and week 4 no patch. She is aware it is not effective for control the first month. She is also aware that she will need to check placement daily to ensure it has not come off. Encouraged use of condoms as the patch does not protect against STI's. Will return in 3 months for med check. Consent was read and signed. Pt verbalized understand ing. Venereal d isease screening [id number] Z11.3 Sexually t ransmitted infectious disease 6669203 A64 patient collected vaginitis and STI panel sentHIV/He p B&C/Syphil is testing ordered per pt requestsaf e sexual practices discussedv ulvar care lexis discussed Time spent in visit is a total of 30 mins with at least 50% of visit consisting of counseling and review of plan of care. [id number] CLAUDETTE Berry [place] [address] [address] 02/27/2024 12:10:23 02/27/2024 14:01:43 Gynecologic examination 69682118 Z01.419 WWEBC - declinedPa p - done todaySTI screen - declinedRo utine labs - PCPRTC in 1 yr or sooner if needed It is strongly advised to have an annual flu shot and up can obtain at most pharmacies . If you have not had a TDap shot in the last 10 years you should obtain one as well. Discussed with patient & provided with informatio n regarding the HPV vaccine if applicable . Encourage safe sexual practices, to use condoms and limit partners if not already in a monogamous relationsh ip. Do monthly self breast exams. BRCA testing is now available for patients with strong genetic history of female cancer. If interested contact the office. Engage in regular exercise. Avoid tobacco and illicit drugs. This lifestyle behavior pattern will lead to less health conditions and longer life span. If BMI greater than 25 dietary consult advised. Questions answered. Health Concerns Section Related Observation LastModified by Organization Detai ls LastModified Time None Recorded Concern Status LastModified by Organization Details LastModified Time None Recorded Advance Directives Directive N: Payers Encounter Date Sequence Insurance Name Policy Number Policy Don Covered Member ID Don Member ID Guarantor Name 06/24/2023 1 [facility] ON OR AFTER 08/24/20 (MEDICAID REPLACEMENT - HMO) Callie Goff [id number] Callie Goff 09/11/2023 1 [facility] ON OR AFTER 08/24/20 (MEDICAID REPLACEMENT - HMO) Callie Goff [id number] Callie Goff 02/27/2024 1 [facility] ON OR AFTER 20 (MEDICAID REPLACEMENT - HMO) Callie Goff [id number] Callie Goff Notes Date Note Type Note Provider Name and Address Organization Details Recorded Time 06/24/2023 text/html Callie is a 22yo reproductive age female here today with sx's of urinary urgency, frequency, bladder pressure; some dysuria.Went to urgent care but told she didn't have anything.Still with these sx's. Neg pain of abd/pelvis/flankNe g urinary sx'sNeg GI sx'sNeg N/V/F/C/DNeg Vag d/c, odor, irritation, itching Health Hx was reviewed and updated as reported in chart (in private) CLAUDETTE [facility] [address], [place], [address], [facility] 06/24/2023 14:33:51 09/11/2023 text/html 22yo [id number] for BC consulthas been on depo, last injection 06/11/2023wants to discuss other options, int in the patch would like STI testinghad vaginal itching a few days ago, resolved after using OTC monistat denies h/o DVT/PE, HTN, Stroke/OR, cancer, liver disease, or migraine with aura CLAUDETTE Berry [address], [place], [address], [facility] 09/11/2023 17:34:32 02/27/2024 text/html Annual GYNReport ed bypatient.Menstrua l cycle:Normal menses Urinary symptoms:No hematuria; No incontinence Vulva:No genital lesion Vagina:Normal vaginal discharge Breast:No breast pain; No breast lump; No nipple discharge Sexual complaints:No sexual complaints; No pain during intercourse; Normal libido Menopausal Symptoms:No menopausal symptoms; Normal vaginal lubrication Psychological symptoms:No depression; No anxiety; No PMDD Preventive measures:Encourage self breast examination; Encourage regular exercise; Encourage no tobacco use; Encourage regular mammograms starting age 40 CLAUDETTE Berry [address], [place], [address], [facility] 02/27/2024 14:00:10 OBGyn Episode Ob Episode Information Episode Created Date Number of Fetuses Patient Bloodtype Patient rh Status Prepregnancy Weight lbs Domestic Partner Domestic Partner Phone Father Name Maternity Nurse Status 06/24/19 24 1 CLOSED Fetus Data First Name Last Name Admitted to NICU Weight (g) Sex Living Outcome Pediatric Complications Fetus ID Race Codes Race Delivery Type , Induced [id number] Román Calculation Initial Román Date Initial Exam Date Initial Exam Provider Initial Ultrasound Date Last Menstrual Period Date Ultra Sound Weeks Gestation 0 Eighteen To Twenty Week Román Update Ultra Sound Date Fundal Height At Umbil Quickening Date Ultra Sound Latest Weeks Gestation Final Román Confirmed By Final Román Confirmed Date Final Román Date Ultra Sound Latest Days Gestation 0 0 Menstrual History Last Menstrual Date Menses Monthly On Bcp Conception Prior Menses Frequency Hcg Plus Date Menarche Onset Age Delivery Information Delivery Date Delivery Type Labor Anesthesia Weeks Gestation Incision Type Labor Labor Length Hrs Delivered By Post Complications Tubal Sterilization Discharge Date Comments 2 Discharge Information Feeding Method Contraceptive Method Maternal HG B and HCT Levels Ob Episode Information Episode Created Date Number of Fetuses Patient Bloodtype Patient rh Status Prepregnancy Weight lbs Domestic Partner Domestic Partner Phone Father Name Maternity Nurse Status 06/24/19 24 1 CLOSED Fetus Data First Name Last Name Admitted to NICU Weight (g) Sex Living Outcome Pediatric Complications Fetus ID Race Codes Race Delivery Type , Induced [id number] Román Calculation Initial Román Date Initial Exam Date Initial Exam Provider Initial Ultrasound Date Last Menstrual Period Date Ultra Sound Weeks Gestation 0 Eighteen To Twenty Week Román Update Ultra Sound Date Fundal Height At Umbil Quickening Date Ultra Sound Latest Weeks Gestation Final Román Confirmed By Final Román Confirmed Date Final Román Date Ultra Sound Latest Days Gestation 0 0 Menstrual History Last Menstrual Date Menses Monthly On Bcp Conception Prior Menses Frequency Hcg Plus Date Menarche Onset Age Delivery Information Delivery Date Delivery Type Labor Anesthesia Weeks Gestation Incision Type Labor Labor Length Hrs Delivered By Post Complications Tubal Sterilization Discharge Date Comments 3 Discharge Information Feeding Method Contraceptive Method Maternal HG B and HCT Levels
--- OUTSIDE RECORDS SUMMARY | 2024-03-28 10:44 | XMS_ITS | Referral Summary ---
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
[2024-03-28 11:04] VITALS: BP 116/69; PULSE 80; TEMP 36.9; O2SAT 98
--- NOTE | 2024-03-28 12:31 | PC.NURSE ---
pt told this RN that she was tired of waiting and was leaving to go home and lay down.
--- OUTSIDE RECORDS SUMMARY | 2024-03-28 12:40 | XMS_ITS | Clinical Summary ---
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
--- OUTSIDE RECORDS SUMMARY | 2024-03-28 12:40 | XMS_ITS | Referral Summary ---
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
== END 2024-03-28 14:21 | disposition left against medical advice (07) ==
LOC: ANHED 12:38
DX: R11.0 Nausea (principal)
CPT/HCPCS: 99199